=== PATIENT | male | born 1980 | race Caucasian/White ===

== ENCOUNTER 2021-01-22 10:14 | Emergency (ER) | payer OTHER ==
[2021-01-22 11:00] LABS: BASOPHILS % (AUTO) 0.3 %; EOSINOPHILS # (AUTO) 0.1 10^3/uL (0.0-0.7); HCT - HEMATOCRIT 47.2 % (42.0-52.0); HGB - HEMOGLOBIN 16.6 g/dL (14.0-18.0); LYMPHOCYTES # (AUTO) 2.7 10^3/uL (1.5-3.5); LYMPHOCYTES % (AUTO) 38.3 %; MEAN CORPUSCULAR HGB CONC 35.2 g/dL (32.0-36.0); MEAN CORPUSCULAR VOLUME 91.1 fL (80.0-94.0); MEAN PLATELET VOLUME 10.4 fL (7.4-11.4); MONOCYTES # (AUTO) 0.6 10^3/uL (0.0-1.0); NEUTROPHILS # (AUTO) 3.5 10^3/uL (1.5-6.6); NEUTROPHILS % (AUTO) 50.3 %; PLT - PLATELET COUNT 182 10^3/uL (130-450); RED BLOOD COUNT 5.18 10^6/uL (4.70-6.10); RED CELL DISTRIBUTION WIDTH 12.1 % (12.0-15.0)
--- NOTE | 2021-01-22 11:04 | ED Physician Documentation ---
PD HPI CHEST PAIN - Stated complaint Stated Complaint: CHEST PX - Chief complaint Chief Complaint: Cardiac - History obtained from History obtained from: Patient - History of Present Illness Timing - onset: Yesterday Timing - onset during: Light activity Timing - duration: Days (1) Timing - details: Gradual onset, Still present, Waxing and waning (improved with some antacids last evening but not resolved and did not improve with Ranitidine this morning.) Quality: Aching Location: Substernal, Epigastric Improved by: No: Rest Worsened by: Palpation (slightly tender epigastric area). No: Inspiration, Movement Associated symptoms: Nausea. No: Shortness of air, Vomiting, Feeling faint / dizzy, General Weakness Similar symptoms before: No diagnosis (presumed reflux. He was not sure if same since not resolved with antacids and was persisting longer.) Recently seen: Not recently seen Review of Systems Constitutional: denies: Fever, Chills Nose: denies: Rhinorrhea / runny nose, Congestion Throat: denies: Sore throat Cardiac: reports: Chest pain / pressure. denies: Palpitations, Pedal edema, Calf pain Respiratory: denies: Dyspnea, Cough GI: reports: Nausea. denies: Vomiting, Constipation, Diarrhea Skin: denies: Rash, Lesions PD PAST MEDICAL HISTORY - Past Medical History Past Medical History: Yes Cardiovascular: Hypertension Respiratory: Sleep apnea, CPAP use Neuro: None Endocrine/Autoimmune: None GI: GERD, Other : None HEENT: None Psych: None Musculoskeletal: None Derm: None Other Past Medical History: IBS - Past Surgical History Past Surgical History: No - Present Medications Home Medications: Ambulatory Orders Medication Instructions Recorded Confirmed Famotidine [Pepcid] 20 mg PO DAILY #20 tablet 01/22/21 Fluticasone [Flonase] 1 sprays OTTO BID 01/22/21 01/22/21 Lidocaine Viscous 2% [Xylocaine 5 ml PO Q4H PRN #100 ml 01/22/21 Viscous 2%] Loratadine [Claritin] 10 mg PO DAILY 01/22/21 01/22/21 Losartan Potassium 25 mg PO DAILY 01/22/21 01/22/21 - Allergies Allergies/Adverse Reactions: Allergies Allergy/AdvReac Type Severity Reaction Status Date / Time Penicillins Allergy Hives Verified 01/22/21 10:44 - Social History Does the pt smoke?: No Smoking Status: Never smoker Does the pt drink ETOH?: Yes Does the pt have substance abuse?: No - Immunizations Immunizations are current?: Yes PD ED PE NORMAL - Vitals Vital signs reviewed: Yes - General General: Alert and oriented X 3, No acute distress, Well developed/nourished - HEENT HEENT: Pharynx benign - Neck Neck: Supple, no meningeal sign, No adenopathy - Cardiac Cardiac: RRR, No murmur - Respiratory Respiratory: Clear bilaterally - Abdomen Abdomen: Normal bowel sounds, Soft, Non distended, No organomegaly, Other (mild tender epigastric area without guarding. No chestwall tenderness. ) - Derm Derm: Normal color, Warm and dry - Extremities Extremities: Normal ROM s pain - Neuro Neuro: Alert and oriented X 3, No motor deficit, Normal speech Results - Vitals Vitals: Oxygen O2 Source Room air - EKG (time done) 10:28 Rate: Rate (enter#) (64) Rhythm: NSR [place]: Normal Intervals: Normal [place] QRS: Normal Ischemia: Normal ST segments. No: ST elevation c/w ischemia, ST depression - Labs Labs: Laboratory Tests 01/22/21 01/22/21 01/22/21 10:50 10:50 10:50 WBC 7.0 RBC 5.18 Hgb 16.6 Hct 47.2 MCV 91.1 MCH 32.0 H MCHC 35.2 RDW 12.1 Plt Count 182 MPV 10.4 Neut # (Auto) 3.5 Lymph # (Auto) 2.7 [place] # (Auto) 0.6 Eos # (Auto) 0.1 Baso # (Auto) 0.0 Absolute Nucleated RBC 0.00 Nucleated RBC % 0.0 Sodium 137 Potassium 4.3 Chloride 99 L Carbon Dioxide 28 Anion Gap 10.0 BUN 18 Creatinine 1.2 Estimated GFR (MDRD) 66 L Glucose 92 Calcium 9.7 Total Bilirubin 0.6 AST 36 ALT 58 Alkaline Phosphatase 49 Troponin I High Sens 2.8 Total Protein 7.5 Albumin 4.7 Globulin 2.8 Albumin/Globulin Ratio 1.7 Lipase 43 - Rads (name of study) chest xray Radiology: Prelim report reviewed (no acute process), See rad report PD MEDICAL DECISION MAKING - ED course Complexity details: reviewed results (tests negative. Improvement with GI meds.), considered differential (Seems possibly gastritis. ECG is good. ), d/w patient Departure - Departure Disposition: 01 Home, Self Care Clinical Impression: Acute epigastric pain Acute gastritis Qualifiers: Gastritis type: unspecified gastritis Gastritis bleeding: without bleeding Qualified Code(s): K29.00 - Acute gastritis without bleeding Condition: Stable Record reviewed to determine appropriate education?: Yes Instructions: ED Gastritis Follow-Up: Tashia Flores MD [Primary Care Provider] - Prescriptions: Famotidine [Pepcid] 20 mg PO DAILY #20 tablet Lidocaine Viscous 2% [Xylocaine Viscous 2%] 5 ml PO Q4H PRN #100 ml PRN Reason: Pain Comments: This sounds likely to be some irritation of the stomach (gastritis). Use famotidine twice daily for the next several days and then once daily for the next week or 2. Use antacid such as Maalox or Mylanta and you can combine lidocaine with it to help with the pains. To that add Tylenol every 4-6 hours if needed for pain. Avoid NSAIDs such as ibuprofen or naproxen as it may further irritate your stomach. Minimal caffeine and alcohol as these can irritate your stomach as well. Recheck if not improved over the next 2 to 3 days and resolved after that. Discharge Date/Time: 01/22/21 12:34
--- NOTE | 2021-01-22 11:14 | XRAY Report ---
PROCEDURE: Chest 1 View X-Ray INDICATIONS: Chest pain TECHNIQUE: One view of the chest was acquired. COMPARISON: None. FINDINGS: Surgical changes and devices: None. Lungs and pleura: No pleural effusions or pneumothorax. Linear atelectasis left lung base is seen. N o definite focal infiltrate. Mediastinum: Mediastinal contours appear normal. Heart size is normal. Bones and chest wall: No suspicious bony lesions. Overlying soft tissues appear unremarkable. IMPRESSION: Left basilar atelectasis. No focal infiltrate, pleural effusion or pneumothorax. Reviewed by: Bry Savage MD on 01/22/2021 11:13 AM PDT Approved by: Bry Savage MD on 01/22/2021 11:13 AM PDT Station ID: [id number]
[2021-01-22 11:24] LABS: ALBUMIN 4.7 g/dL (3.2-5.5); ALBUMIN/GLOBULIN RATIO 1.7 (1.0-2.2); BILIRUBIN,TOTAL 0.6 mg/dL (0.2-1.0); CALCIUM 9.7 mg/dL (8.5-10.3); CREATININE 1.2 mg/dL (0.6-1.2); POTASSIUM 4.3 mmol/L (3.5-5.0); TOTAL PROTEIN 7.5 g/dL (6.7-8.2)
[2021-01-22] MEDS ORDERED: FAMOTIDINE 20 MG/2 ML VIAL IVP STA (11:50)
[2021-01-22] MEDS ORDERED: MAG HYDROX/AL HYDROX/SIMETH 30 ML UDC PO STA (11:50)
[2021-01-22] MEDS ORDERED: LIDOCAINE VISCOUS 2% 15 ML UDC MM STA (11:50)
[2021-01-22] MEDS ORDERED: ACETAMINOPHEN 325 MG TABLET PO STA (11:50)
[2021-01-22 12:25] VITALS: BP 128/92
== END 2021-01-22 12:34 | disposition home or self-care (01) ==
LOC: ED 10:14
DX: K29.00 Acute gastritis without bleeding (principal); I10 Essential (primary) hypertension
CPT/HCPCS: 36415; 71045; 80053; 83690; 84484; 85025; 93005; 96374; 99284; A9270

== ENCOUNTER 2023-01-07 15:39 | Outpatient (CLI) | payer OTHER ==
--- NOTE | 2023-01-07 16:19 | SLEEP CARE CONSULTATION ---
Information from patient questionnaire entered by Checo Kahn. I have reviewed and concur with the information entered by Checo Kahn. This document represents the service I personally performed and the decisions made by me, Nedra Hernandez ARNP. History of Present Illness Service Date and Time: 01/07/2023 1539 Reason for Visit: New patient, sleep apnea on CPAP therapy Chief Complaint: reports: Snoring, Excessive daytime sleepiness Date of Onset: 5+YRS Usual bedtime: 10PM Time it takes to fall asleep: 10MINS Snores at night: Yes Observed to quit breathing while asleep: Yes Sleeps alone due to snoring: No Number of times waking at night: 2-3 TIMES Reasons for waking at night: reports: Bathroom, Other (TOO HOT) Toss, Turn, or Twitch while sleeping: Yes Recalls having dreams: Yes Usually gets out of bed at: 5AM Feels refreshed in the morning: Yes Morning headache: Yes Sleepy or fatigued during the day: Yes Ever fallen asleep while driving: No Takes day naps: Yes Dreams during day naps: No Prior sleep studies: Yes Year and Where: 2017 [facility] Type of Sleep Study: Home sleep study Additional HPI information: SONA COKER was previously diagnosed to have mild (per patient), AHI unknown, obstructive sleep apnea-hypopnea syndrome as diagnosed in 2018 in [place] but he did not bring in copy of sleep study today and he comes in today to establish care for CPAP therapy. - Parasomnia Symptoms Ever been unable to move upon waking from sleep: No Walks in sleep: No Talks in sleep: No Ever acted out dreams in sleep: No Ever felt weak in the knees when startled or emotional: No Bothered by creepy, crawly, restless sensations in legs: No Problems with memory or concentration: No CPAP Compliance Data - Data Reviewed with Patient Average duration of nightly device use: 6 hours 36 minutes Compliance rate %: 100 ( day used) Current pressure setting (cmH2O): 6-12 Average residual AHI: 0.6 Central apnea: 0.2 Obstructive apnea: 0.3 Hypopnea: 0.1 Compliance data discussion: Airsense 10 set up in 04/2018. He is getting supplies from [facility]. He is using a ResMed Airfit N30. He does have a back up mask. He changed his cushion last month. Subjective Patient concerns: reports: mask discomfort (sometimes just under the nose). denies: aerophagia, air blowing in eyes, mask leak noise, condensation in mask/hose, nasal congestion, dry mouth, nose, throat, epistaxis Observed to snore while using device: No Current pressure setting perceived as: comfortable On therapy, patient: reports: sleeping better, awakening more refreshed, being more awake and alert during the day, more rested overall. 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 Patient is and lives in [place]. Have you smoked in the past 12 months: No Alcohol use: Yes Alcohol amount and frequency: 1 DRINK 2-3X A WEEK Caffeine use: Yes Caffeine amount and frequency: 1-2 CUPS COFFEE DAILY Family History Family history of sleep disordered breathing: Yes Family Hx Sleep Apnea: Mother: Snoring, Sibling: Sleep apnea - Treated Allergies and Home Medications Known drug allergies: Yes (penicillin) Drug allergies reviewed: Yes Home medication list reviewed: Yes Allergy and home medication list: Allergies Penicillins Allergy (Verified 01/06/23 14:37) Hives Medications: Losartan 25 mg daily Zyrtec 5 mg daily for allergies Gabapentin 300 mg for migraines Flonase 2 sprays each nostril 2 times a day Review of Systems Weight gain over past 5 years: 10 Cardiovascular: reports: high blood pressure Respiratory: denies: shortness of breath Gastrointestinal: denies: heartburn Neurological: reports: headaches Psychiatric: reports: anxiety Musculoskeletal: reports: neck pain Immunologic: reports: allergies to food or environment Physical Exam Vital signs obtained and entered by: CHECO Amador MA Blood Pressure: 116/64 (LEFT ARM) Cuff size: regular Heart Rate: 61 O2 Saturation: 99 Height: 5 ft 8 in Weight: 202 lb 9.6 oz Body Mass Index: 30.8 BMI Classification: Obese Neck circumference: 16.5 Heart: regular rate and rhythm Lungs: clear bilaterally Impression and Plan 1. Obstructive Sleep Apnea-Hypopnea Syndrome, mild (according to patient), with good treatment compliance and good apnea control. On CPAP therapy, the patient has better sleep quality and is more rested overall. He was at [facility] until they closed last July. He thinks he has a copy of his last sleep study at home. Once we have a copy of his records, a prescription for his supplies will be sent to his DME supplier. He has sign ificant improvement of his sleep apnea and is satisfied with current CPAP therapy. His Resmed Airsense 10 was originally set up in 04/2018. I informed him that he will be due a new CPAP in April this year. He may call or come in at that time to request an update. I explained to him about a compliance visit after updating his CPAP and he voiced understanding. Patient's apnea severity and rationale for treatment to reduce apnea, improve sleep quality and reduce cardiovascular and cerebrovascular events was reviewed. I also reviewed the benefit of consistent device use of CPAP for hypertension and migraines. * Continue auto CPAP pressure at 6-12 cmH2O * Update supplies once we get a copy of sleep study * Notify me if snoring with mask or feeling that the pressure is too much or too little * Attempt to lose weight * Call this office if any problems using CPAP * Return for follow up in 1 year, or sooner if concerns arise Counseling Topics: Spare mask, Weight loss health impact Visit Type: In Office Time Spent with Patient (minutes): 30 Provider Statement: I spent 100% of the Face to Face Visit with the patient with greater than 50% spent counseling the patient and coordination of care.
[2023-01-07 16:27] VITALS: BP 116/64
== END 2023-01-07 15:40 | disposition home or self-care (01) ==
LOC: SC 15:39
PROVIDERS: ATTEND Nurse Practitioner Family
DX: G47.33 Obstructive sleep apnea (adult) (pediatric) (principal); E66.9 Obesity, unspecified; Z68.30 Body mass index [BMI] 30.0-30.9, adult
CPT/HCPCS: 99203; 99212

== ENCOUNTER 2023-01-09 21:29 | Outpatient (CLI) | payer OTHER | END 2023-01-09 21:30 | disposition EMS.NT | LOC: EMS 21:29 | DX: R00.0 Tachycardia, unspecified (principal) ==

== ENCOUNTER 2023-10-02 15:46 | Outpatient (CLI) | payer OTHER ==
--- NOTE | 2023-10-02 16:35 | Sleep Patient Instructions ---
Sleep Center Visit Summary - Patient Visit Information Reason for Visit: Nine month follow up - Patient Instructions Additional Instructions: You were here for follow up of CPAP therapy. You will be continued on CPAP therapy with pressure at 6-12 cmH2O. A prescription to update your machine will be sent to your DME supplier. Please call us once you get the machine to set up your compliance followup. You should follow up with sleep care one month after obtaining new CPAP. You may contact us sooner for any questions or concerns. - Clinic Information Contact: [facility] [address] [place] [address] [email or web address] T: [phone]
--- NOTE | 2023-10-02 16:40 | SLEEP CARE CONSULTATION ---
Information from patient questionnaire entered by Checo Kahn. I have reviewed and concur with the information entered by Checo Kahn. This document represents the service I personally performed and the decisions made by me, Nedra Hernandez ARNP. History of Present Illness Service Date and Time: 10/02/2023 1546 Previous diagnosis: Moderate, Obstructive Sleep Apnea-Hypopnea Syndrome AHI: 24.2 (in 10/2017) Reason for follow up: other (9MONTH F/U) Equipment type: CPAP (RESMED AIRSENSE 10 AUTOSET SETUP DATE 04/06/24 PT WANTS NEW MACHINE) Equipment obtained from: [facility] ([facility]; getting supplies) Mask style: Nasal Mask brand: Resmed (N30) Backup mask available: Yes Last cushion change: few days Prior sleep studies: Yes Year and Where: 2017 [facility] Type of Sleep Study: Home sleep study HPI additional information: SONA COKER was diagnosed to have moderate, AHI 24.2, obstructive sleep apnea- hypopnea syndrome and returned today for CPAP therapy nine month follow-up. Sleep Study - Results Type of Sleep Study: Home sleep study Prior sleep studies: Yes Year and Where: 2017 [facility] CPAP Compliance Data - Data Reviewed with Patient Average duration of nightly device use: 7 HRS 0 MINS Compliance rate %: 99 (02/03/23-09/30/23; 240/240 days used) Current pressure setting (cmH2O): 6-12 Average residual AHI: 1.2 Subjective Patient concerns: reports: nasal congestion (occasional). denies: aerophagia, mask discomfort, air blowing in eyes, mask leak noise, condensation in mask/hose, dry mouth, nose, throat, epistaxis Observed to snore while using device: No Current pressure setting perceived as: comfortable On therapy, patient: reports: sleeping better, awakening more refreshed, being more awake and alert during the day, more rested overall. denies: drowsiness while driving Initial [place] Sleepiness Scale score: 10 (01/07/23) Current [place] Sleepiness Scale score: 8 (10/02/23) Allergies and Home Medications Known drug allergies: Yes (penicillins) Drug allergies reviewed: Yes Home medication list reviewed: Yes (Doxipen) Allergy and home medication list: Allergies Penicillins Allergy (Verified 09/30/23 14:11) Hives Review of Systems Review of systems same as previous: No (anxiety) Physical Exam Vital signs obtained and entered by: CHECO Amador MA Blood Pressure: 138/90 (LEFT ARM) Cuff size: regular Heart Rate: 79 O2 Saturation: 97 Height: 5 ft 8 in Weight: 208 lb 3.2 oz Body Mass Index: 31.6 BMI Classification: Obese Impression and Plan 1. Obstructive Sleep Apnea-Hypopnea Syndrome, moderate, with good treatment compliance and good apnea control. On CPAP therapy, the patient has better sleep quality and is more rested overall. He has a ResMed Airsense 10 that he received in 04/2018. The patients CPAP is over 5 years old and of reasonable use. Thus, the CPAP will be updated. A DWO prescription will be made. Compliance guidelines for new device and follow up discussed. Patient's apnea severity and rationale for treatment to reduce apnea, improve sleep quality and reduce cardiovascular and cerebrovascular events was reviewed. I also reviewed the benefit of consistent device use of CPAP for hypertension, migraines. 2. Obesity, unspecified. Currently patients BMI is 31.6. Obesity increases the risk of apnea, CPAP pressure requirements and overall health risks especially cardiovascular and diabetes. Thus patient is advised to lose weight. * Continue auto CPAP pressure at 6-12 cmH2O * Update machine * Update supplies * Notify me if snoring with mask or feeling that the pressure is too much or too little * Attempt to lose weight * Call this office if any problems using CPAP * Return for follow up one month after obtaining new device, or sooner if concerns arise Counseling Topics: Spare mask, Weight loss health impact Prescriptions: Auto CPAP Follow up with Sleep Care in: other (for compliance followup) Visit Type: In Office Time Spent with Patient (minutes): 20 Provider Statement: I spent 100% of the Face to Face Visit with the patient with greater than 50% spent counseling the patient and coordination of care.
[2023-10-02 16:54] VITALS: BP 138/90; O2SAT 97
== END 2023-10-02 15:47 | disposition home or self-care (01) ==
LOC: SC 15:46
PROVIDERS: ATTEND Nurse Practitioner Family
DX: G47.33 Obstructive sleep apnea (adult) (pediatric) (principal); E66.9 Obesity, unspecified; Z68.31 Body mass index [BMI] 31.0-31.9, adult
CPT/HCPCS: 99212; 99213

== ENCOUNTER 2023-11-27 15:49 | Outpatient (CLI) | payer OTHER ==
--- NOTE | 2023-11-27 15:23 | Sleep Patient Instructions ---
Sleep Center Visit Summary - Patient Visit Information Reason for Visit: First compliance with new device - Patient Instructions Additional Instructions: You were here for follow up of CPAP therapy. You will be continued on CPAP therapy with pressure at 6-12 cmH2O. You should follow up with sleep care in 12 months. You may contact us sooner for any questions or concerns. - Clinic Information Contact: [facility] [address] [place] [address] [email or web address] T: [phone]
--- NOTE | 2023-11-27 15:25 | SLEEP CARE CONSULTATION ---
Information from patient questionnaire entered by Checo Kahn. I have reviewed and concur with the information entered by Checo Kahn. This document represents the service I personally performed and the decisions made by me, Nedra Hernandez ARNP. History of Present Illness Service Date and Time: 11/27/2023 1520 Previous diagnosis: Moderate, Obstructive Sleep Apnea-Hypopnea Syndrome AHI: 24.2 (in 10/2017) Reason for follow up: first compliance after device update Equipment type: CPAP (RESMED Airsense 11) Equipment obtained from: [facility] ([facility]; getting supplies) Mask style: Nasal Mask brand: Resmed Backup mask available: Yes Last cushion change: 1 month Prior sleep studies: Yes Year and Where: 2017 [facility] Type of Sleep Study: Home sleep study HPI additional information: SONA COKER was diagnosed to have moderate, AHI 24.2, obstructive sleep apnea- hypopnea syndrome and returned today for CPAP therapy first compliance after updating device follow-up. Sleep Study - Results Type of Sleep Study: Home sleep study Prior sleep studies: Yes Year and Where: 2017 [facility] CPAP Compliance Data - Data Reviewed with Patient Average duration of nightly device use: 6 hours 45 minutes Compliance rate %: 100 (30/30 days used) Current pressure setting (cmH2O): 6-12 Average residual AHI: 1.6 Central apnea: 0.8 Obstructive apnea: 0.6 Average large leak: 0 L/min Subjective Patient concerns: denies: aerophagia, mask discomfort, air blowing in eyes, mask leak noise, condensation in mask/hose, nasal congestion, dry mouth, nose, throat, epistaxis Observed to snore while using device: No Current pressure setting perceived as: comfortable On therapy, patient: reports: sleeping better, awakening more refreshed, being more awake and alert during the day, more rested overall. denies: drowsiness while driving Initial [place] Sleepiness Scale score: 10 (01/07/23) Current [place] Sleepiness Scale score: 9 (11/27/23) Allergies and Home Medications Known drug allergies: Yes (as listed) Drug allergies reviewed: Yes Home medication list reviewed: Yes (no changes) Allergy and home medication list: Allergies Penicillins Allergy (Verified 11/25/23 13:36) Hives Review of Systems Review of systems same as previous: Yes (NO CHANGE) Physical Exam Vital signs obtained and entered by: CHECO Amador MA Blood Pressure: 124/83 (LEFT ARM) Cuff size: regular Heart Rate: 87 O2 Saturation: 97 Height: 5 ft 8 in Weight: 208 lb 6.4 oz Body Mass Index: 31.6 BMI Classification: Obese Impression and Plan 1. Obstructive Sleep Apnea-Hypopnea Syndrome, moderate, with good treatment compliance and good apnea control. On CPAP therapy, the patient has better sleep quality and is more rested overall. He likes his new CPAP machine and feels like it is working well. Patient has significant improvement of their sleep apnea and is satisfied with current CPAP therapy. Patient denies problems with oral dryness, nasal congestion, epistaxis, skin irritation or aerophagia. Patient's apnea severity and rationale for treatment to reduce apnea, improve sleep quality and reduce cardiovascular and cerebrovascular events was reviewed. I also reviewed the benefit of consistent device use of CPAP for hypertension, migraines. 2. Obesity, unspecified. Currently patients BMI is 31.6. Obesity increases the risk of apnea, CPAP pressure requirements and overall health risks especially cardiovascular and diabetes. Thus patient is advised to lose weight. * Continue auto CPAP pressure at 6-12 cmH2O * Notify me if snoring with mask or feeling that the pressure is too much or too little * Attempt to lose weight * Call this office if any problems using CPAP * Return for follow up in 12 months, or sooner if concerns arise 4 Counseling Topics: Spare mask, Weight loss health impact Follow up with Sleep Care in: 1 year Visit Type: In Office Time Spent with Patient (minutes): 11 Provider Statement: I spent 100% of the Face to Face Visit with the patient with greater than 50% spent counseling the patient and coordination of care.
[2023-11-27 15:29] VITALS: BP 124/83; O2SAT 97
== END 2023-11-27 15:50 | disposition home or self-care (01) ==
LOC: SC 15:49
PROVIDERS: ATTEND Nurse Practitioner Family
DX: G47.33 Obstructive sleep apnea (adult) (pediatric) (principal); E66.9 Obesity, unspecified; Z68.31 Body mass index [BMI] 31.0-31.9, adult
CPT/HCPCS: 99212; 99213